=== PATIENT | male | born 1965 | race African-American/Black ===

== ENCOUNTER 2018-09-09 10:59 | Emergency (ER) | payer OTHER, MEDICARE ==
[~2018-09-09] VITALS: Ht 185.4 cm; Wt 84.1 kg
[~2018-09-09 10:59] MED LIST: TRAMADOL HCL50 MG PO; TRAZODONE50 MG; ULTRAM50 M1 PO; ZYRTEC10 MG PO
[2018-09-09] MEDS ORDERED: PENICILLN VK500 MG PO (11:30)
[2018-09-09] MEDS ORDERED: IBUPROFEN600 MG PO (11:30)
[2018-09-09 11:37] VITALS: BP 129/86
== END 2018-09-09 11:37 | disposition home or self-care (01) | DRG 159 ==
LOC: ED 10:59
DX: K12.2 Cellulitis and abscess of mouth (principal); F17.210 Nicotine dependence, cigarettes, uncomplicated

== ENCOUNTER 2019-11-24 14:28 | Emergency (ER) | payer OTHER, MEDICARE ==
[~2019-11-24] VITALS: Ht 185.4 cm; Wt 84.0 kg
[~2019-11-24 14:28] MED LIST changes: +IBUPROFEN600 MG PO; +PENICILLN VK500 MG PO
[2019-11-24] MEDS ORDERED: PREDNISONE50 MG PO (14:53)
[2019-11-24] MEDS ORDERED: TRIAMCINOLON0.11 EX (14:58)
[2019-11-24 15:16] VITALS: BP 141/91
== END 2019-11-24 15:20 | disposition home or self-care (01) | DRG 607 ==
LOC: ED 14:28
DX: L20.9 Atopic dermatitis, unspecified (principal); F17.200 Nicotine dependence, unspecified, uncomplicated